=== PATIENT | female | born 1985 | race American Indian/Alaskan Native ===

== ENCOUNTER 2018-06-25 09:18 | Emergency (ER) | payer OTHER ==
[2018-06-25 09:36] VITALS: BMI 28.9
[2018-06-25] MEDS ORDERED: ACETAMINOPHEN 1000 MG/100 ML VIAL (NON FORMULARY) IVPB ONE (10:25)
[2018-06-25] MEDS ORDERED: LACTATED RINGERS SOLUTION 1000 ML INFUS.BAG IV ONE (10:25)
[2018-06-25] MEDS ORDERED: ACETAMINOPHEN INJECTION 100 ML IVPB ONE (10:50)
--- NOTE | 2018-06-25 10:59 | PDOC ---
History of Present Illness - General Chief Complaint: Nausea/Vomiting Stated Complaint: 5 WKS W/ FEVER AND VOMITING Time Seen by Provider: 06/25/18 09:50 History Source: Patient, Spouse ( present at bedside.) Exam Limitations: No Limitations - History of Present Illness Initial Comments: HPI: 32 y/o female presenting to [facility] ER complaining of nausea, vomiting, coughing, sore throat, sinus congestion, lightheadedness, palpitations, and shortness of breath since yesterday. Pt is 20w3d by LMP. Emesis described as non- bloody, non-bilious. Believes her sore throat is triggering the vomiting. Palpitations started last evening and are present both at rest and with exertion. Does not believe the shortness of breath is related. Coughing in productive of small amount of clear sputum. 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 Endorses h/o of similar complaints with previous . Was diagnosed with influenza at that time and rehydrated in the ER. Her first child was born with a cleft lip and expressed concern it was related to taking Zofran and Reglan. OBGYN Hx: - LMP: 02/02/2018 - A0, full term, breach via - No h/o of abnormal PAP smear - No h/o STD PCP: Madie DuboseN: Dr. 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 Medical Hx: - No PMH endorsed. - States she takes Iron supplements and vitamins Surgical Hx: - Review of Systems: In addition to that documented in the HPI above, the additional ROS was obtained : Constitutional: Denies fevers or chills Head: Denies vision changes ENMT: Endorses sore throat CV: Per HPI Resp: Per HPI GI: Endorses vomiting. Denies diarrhea : Denies painful urination, hematuria, vaginal bleeding MSK: Denies recent trauma Skin: Denies new rashes Neuro: Endorses generalized weakness. Denies new numbness or tingling Endocrine: Denies polyuria Heme: Denies bleeding or bruising Physical Examination: Constitutional: Well-developed, well-nourished adult female in no acute distress or obvious discomfort. Found sitting upright on edge of OB table. Alert and oriented x4. Answered all questions appropriately and completely. Speech was non-labored, non-pressured. Head: Normocephalic. No obvious external signs of trauma. Eyes: Sclerae white. Conjunctiva moist and not injected. Ears: Hearing grossly intact. Nose: Nasal congestion. Throat: Oral cavity and pharynx normal. No inflammation, swelling, exudate, or lesions. Teeth and gingiva in good general condition. Moist mucosal membranes. Neck: Supple, trachea is midline. Cardiovascular / Chest: Tachycardic rate with regular rhythm. No murmur, rubs, clicks, or gallops. Peripheral pulses: radial pulses full. Respiratory: Breathing unlabored. No tachypnea. No retractions. Equal chest rise and fall. Clear to auscultation bilaterally. No stridor, no wheezing, no rhonchi. Gastrointestinal: abdomen is soft and non-tender. Gravid. No pulsatile masses. Neuro: Alert and oriented. Moving all four extremities spontaneously. Skin: Warm, dry, and intact. No bruising, rashes, or other lesions. : No R or L CVA tenderness. Psych: Affect: appropriate. Mood: normal. Past History - Past Medical History Allergies/Adverse Reactions: Allergies Allergy/AdvReac Type Severity Reaction Status Date / Time No Known Allergies Allergy Verified 06/25/18 09:58 Home Medications: Ambulatory Orders Pnv No.121/Iron/Folic Acid [ Multivitamin Tablet] 1 each PO DAILY COPD: No - Reproductive History Is Patient Now?: Yes (#): 2 Para: 1 Cervical CA: No Dysfunctional Uterine Bleeding: No Ectopic : No Endometrial CA: No Polycystic Ovaries: No Therapeutic (s) & number: No Tubal Ligation: No Spontaneous : 0 - Suicide/Smoking/Psychosocial Hx Smoking History: Never smoked Information on smoking cessation initiated: No Hx Alcohol Use: No Drug/Substance Use Hx: No *Physical Exam - Vital Signs Last Vital Signs Temp Pulse Resp BP Pulse Ox 98.2 F 131 H 18 113/80 98 06/25/18 09:33 06/25/18 09:33 06/25/18 09:33 06/25/18 09:33 06/25/18 09:33 ED Treatment Course - LABORATORY CBC & Chemistry Diagram: 06/25/18 11:10 06/25/18 11:10 *DC/Admit/Observation/Transfer Diagnosis at time of Disposition: Nausea and vomiting during prior to 22 weeks gestation, RSV infection - Discharge Dispostion Disposition: HOME Condition at time of disposition: Good Decision to Admit order: No - Referrals Referrals: Juan Landeros MD [Primary Care Provider] - Leonor Shetty [Other] - Patient Instructions Printed Discharge Instructions: DI for Viral Syndrome, DI for Hyperemesis Gravidarum, DI for -- Discomforts and Remedies Additional Instructions: You were seen today for nausea, vomiting, coughing, sore throat, sinus congestion, lightheadedness, palpitations, and shortness of breath since yesterday. Your labs showed a small elevation in your white blood cell count, which is sometimes a sign of an infection. Your RSV test was positive, which is likely the source of your malaise. Be sure to stay well hydrated and drink plenty of fluids over the next several days. You should also rest. I have included a work note in this packet. You can take over the counter Tylenol or Advil as needed for pain. Take as directed on the package insert. Do not exceed the recommended dosage. Follow up with your OBGYN at your next previously scheduled appointment. A copy of todays results are attached to this packet. Take it to the appointment so your doctor can review them. Go to the nearest emergency department if your condition worsens or you feel like you need additional emergency evaluation. Print Language: FINNISH - Post Discharge Activity Forms/Work/School Notes: Back to Work
[2018-06-25 11:23] LABS: BASO % 0.2 % (0-2.0); EOS % 1.5 % (0-4.5); HEMATOCRIT 36.2 % (32.4-45.2); HEMOGLOBIN 11.7 GM/dL (10.7-15.3); MCH 25.6 pg (25.7-33.7); MCHC 32.2 g/dl (32.0-36.0); MEAN CELL VOLUME 79.4 fl (80-96); MEAN PLT VOLUME 7.4 fl (7.5-11.1); MONO % 3.8 % (3.8-10.2); NEUT % 84.5 % (42.8-82.8); PLATELET COUNT 409 K/MM3 (134-434); RBC 4.56 M/mm3 (3.60-5.2); RDW 13.5 % (11.6-15.6); WHITE BLOOD COUNT 15.6 K/mm3 (4.0-10.0)
[2018-06-25 11:38] LABS: EPI CELLS 8.8 /HPF (0-5/HPF); HYALINE CASTS 11 /lpf (0-8); PH,URINE 7.5 (5.0-8.0); URINE APPEARANCE CLEAR; URINE BACTERIA 135.1 /hpf (NEGATIVE); URINE BILIRUBIN NEGATIVE (NEGATIVE); URINE COLOR YELLOW; URINE GLUCOSE (UA) NEGATIVE (NEGATIVE); URINE KETONE NEGATIVE (NEGATIVE); URINE LEUK ESTERASE TRACE (NEGATIVE); URINE NITRITE NEGATIVE (NEGATIVE); URINE PROTEIN NEGATIVE (NEGATIVE); URINE RBC 7 /hpf (0-4); URINE WBC 3 /hpf (0-5)
[2018-06-25 11:51] LABS: ALBUMIN 3.3 g/dl (3.4-5.0); BILIRUBIN,TOTAL 0.3 mg/dL (0.2-1); CREATININE 0.4 mg/dL (0.55-1.3); POTASSIUM 3.9 mmol/L (3.5-5.1); TOT PROT 7.5 g/dl (6.4-8.2)
--- NOTE | 2018-06-25 12:39 | PDOC ---
Attending Attestation - Resident Resident Name: Tigre Hoffmann - ED Attending Attestation I have performed the following: I have examined & evaluated the patient, The case was reviewed & discussed with the resident, I agree w/resident's findings & plan - HPI HPI: 06/25/18 12:32 32-year-old healthy female at 20 weeks gestation by dates presents with 1 day of generalized symptoms of malaise, cough, chills, nausea/vomiting, subjective wheezing and shortness of breath. - Physicial Exam PE: 06/25/18 12:34 tachy but afebrile with normal O2 sat alert, nad speaking full sentences mmm regular slight tachy, no wheeze/crackles soft/nt no edema/calf ttp neuro intact - Medical Decision Making 06/25/18 12:39 32y/o healthy F 2nd trimester otherwise uncomplicated with one day cough/sob, n/v, myalgia/chills most c/w viral process, has h/o influenza. no other red flags on history/exam other than tachycardia. not clinically consistent with PE, likely tachy from respiratory viral illness. leukocytosis 15.6 with normal diff, chem wnl including trop ua clear influenza negative, RSV POSITIVE seen/evaluated by L+D and cleared Heart Score/ECG Review #1 ECG reviewed & interpreted by me at: 10:59 General ECG Interpretation: Sinus Rhythm (tachy at 127), Normal Intervals (qtc 465), No acute ischemic changes
--- NOTE | 2018-06-25 13:30 | EKG ---
Test Reason : Blood Pressure : / mmHG Vent. Rate : 127 BPM Atrial Rate : 127 BPM P-R Int : 142 ms QRS Dur : 074 ms QT Int : 320 ms P-R-T Axes : 066 031 024 degrees QTc Int : 465 ms SINUS TACHYCARDIA OTHERWISE NORMAL ECG NO PREVIOUS ECGS AVAILABLE Confirmed by MD BETO, LAURA ([id number]) on 06/25/2018 1:30:26 PM Referred By: Confirmed By:LAURA PÉREZ MD
[2018-06-25 14:25] VITALS: BP 114/72; PULSE 110; TEMP 97.6
[2018-06-25] MEDS ORDERED: LACTATED RINGERS SOLUTION 1,000 ML/1,000 ML INFUS.BAG IV SCH (14:30)
== END 2018-06-25 14:53 | disposition home or self-care (01) ==
LOC: JER 09:18
PROC: 3E033NZ Introduction of Analgesics, Hypnotics, Sedatives into Peripheral Vein, Percutaneous Approach (ICD-10-PCS; principal; 2018-06-25)
DX: O21.9 Vomiting of pregnancy, unspecified (principal); O21.0 Mild hyperemesis gravidarum; O99.512 Diseases of the respiratory system complicating pregnancy, second trimester; B97.4 Respiratory syncytial virus as the cause of diseases classified elsewhere; Z3A.19 19 weeks gestation of pregnancy
CPT/HCPCS: 36415; 80053; 81003; 84484; 84703; 85025; 87086; 87804; 87807; 93005; 93010; 99283-25; J0131

== ENCOUNTER 2018-08-24 13:21 | Emergency (ER) | payer OTHER ==
[2018-08-24 13:38] VITALS: BMI 30.1
[2018-08-24] MEDS ORDERED: ACETAMINOPHEN 1000 MG/100 ML VIAL (NON FORMULARY) IVPB ONE (14:25)
[2018-08-24] MEDS ORDERED: SODIUM CHLORIDE 1,000 ML IV STA (14:25)
[2018-08-24] MEDS ORDERED: FAMOTIDINE 20 MG/50 ML IVPB 20 MG/50 ML MG IVPB ONE ×2 (14:25→14:42)
--- NOTE | 2018-08-24 14:34 | PDOC ---
History of Present Illness - General Chief Complaint: Pain Stated Complaint: GAS PAIN - History of Present Illness Initial Comments: 08/24/18 14:26 32 yo at 28 wga, LMP 01/2018, with no significant pmh who p/w epigastirc abdominal pain. Patient reports sharp, unremitting epigastria and RUQ, radiating to right sided back. Decreased appetite and PO intake. No identifiable triggers or alleviators. Denies PO symptom control. Endorses multiple +6 episodes of NBNB emesis this AM. Patient attributes symptoms to PO food "greasy food," intake yesterday (08-23-18) evening. Nml BM with absent BPR. Follows with Audit Tech with routine care. Patient denies SHAIKH, vision change, palpitations, cough, wheezing, orthopena, PND , leg swelling/pain, F,C, CP, SOB, urinary complaints, hematuria, BPR, diarrhea , constipation, lightheadedness, weakness, sensory changes. PMHx: as noted above Surgical: ROS: as noted SHx: Denies Etoh, IVDA, tobacco use Allergies: NKDA Past History - Past Medical History Allergies/Adverse Reactions: Allergies Allergy/AdvReac Type Severity Reaction Status Date / Time No Known Allergies Allergy Verified 08/24/18 13:38 Home Medications: Ambulatory Orders Pnv No.121/Iron/Folic Acid [ Multivitamin Tablet] 1 each PO DAILY COPD: No - Reproductive History (#): 2 Para: 1 Cervical CA: No Dysfunctional Uterine Bleeding: No Ectopic : No Endometrial CA: No Polycystic Ovaries: No Therapeutic (s) & number: No Tubal Ligation: No Spontaneous : 0 - Suicide/Smoking/Psychosocial Hx Smoking History: Never smoked Hx Alcohol Use: No Drug/Substance Use Hx: No Review of Systems - Review of Systems Comments:: 08/24/18 14:39 GENERAL/CONSTITUTIONAL: No fever or chills. No weakness. HEAD, EYES, EARS, NOSE AND THROAT: No change in vision. No ear pain or discharge. No sore throat. CARDIOVASCULAR: No chest pain or shortness of breath RESPIRATORY: No cough, wheezing, or hemoptysis. GASTROINTESTINAL: +nausea, vomiting. No diarrhea or constipation. GENITOURINARY: No dysuria, frequency, or change in urination. MUSCULOSKELETAL: No joint or muscle swelling or pain. No neck or back pain. SKIN: No rash NEUROLOGIC: No headache, vertigo, loss of consciousness, or change in strength/ sensation. ENDOCRINE: No increased thirst. No abnormal weight change HEMATOLOGIC/LYMPHATIC: No anemia, easy bleeding, or history of blood clots. ALLERGIC/IMMUNOLOGIC: No hives or skin allergy. *Physical Exam - Vital Signs Last Vital Signs Temp Pulse Resp BP Pulse Ox 98.3 F 113 H 18 130/83 99 08/24/18 13:35 08/24/18 13:35 08/24/18 13:35 08/24/18 13:35 08/24/18 13:35 - Physical Exam Comments: 08/24/18 14:40 GENERAL: Awake, alert, and fully oriented, in no acute distress HEAD: No signs of trauma, normocephalic, atraumatic EYES: PERRLA, EOMI, sclera anicteric, conjunctiva clear ENT: Hearing grossly normal, nares patent, oropharynx clear without exudates. Moist mucosa NECK: Normal ROM, supple, no lymphadenopathy, JVD, or masses LUNGS: No distress, speaks full sentences, clear to auscultation bilaterally HEART: Regular rate and rhythm, normal S1 and S2, no murmurs, rubs or gallops, peripheral pulses normal and equal bilaterally. ABDOMEN: Mild epigastria ttp. Soft, nontender, normoactive bowel sounds. No guarding, no rebound. No masses. Neg CVA ttp. EXTREMITIES : Normal inspection, Normal range of motion, no edema. No clubbing or cyanosis. NEUROLOGICAL: Cranial nerves II through XII grossly intact. Normal speech, normal gait, no focal sensorimotor deficits SKIN: Warm, Dry, normal turgor, no rashes or lesions noted ED Treatment Course - LABORATORY CBC & Chemistry Diagram: 08/24/18 14:34 08/24/18 14:34 - ADDITIONAL ORDERS Additional order review: 08/24/18 17:55 Patient Information: : 1985 Order Type: Preliminary Name: KAREN STARKS Sex: F Study Description: US OBSTETRIC LIMITED Modality: US Location: [facility] Referring Physician: CHAPIN EVANS Comments: Tigre Harris MD wrote on Aug 24, 2018 at 05:07 PM: Referring Physician: CHAPIN EVANS Patient Name: TEREZA JONES THIS IS A PRELIMINARY REPORT FROM [facility] ENGINEERING MANAGER DATE OF SERVICE: 2018-08-24 15:16:21 IMAGES: 19 EXAM: LIMITED US HISTORY: Assess for viable intrauterine COMPARISON: None. FINDINGS: Single live uterine gestation in vertex presentation heart rate 144 bpm Approximate age of 29 weeks, 0 days by composite ultrasound measurements with concordant biometrics Estimated weight 1405 g Amniotic fluid index 17.1 cm, within normal limits for measured gestational age CONFIDENTIALITY NOTICE: This information is intended only for the use of the recipient(s) named above. If you are not the intended recipient, or a person responsible for delivering it to the intended recipient, you are hereby notified that any disclosure, copying, distribution or use of any of the information contained in or attached to this transmission is STRICTLY PROHIBITED. If you have received this transmission in error, please immediately notify Imaging Client Retention Specialist and destroy the original transmission and its attachments without saving them in any manner [address] [place] [address] [place] [address] Phone: [phone] ([phone]) Fax: Email: [email or web address] Patient Information: : 1985 Order Type: Preliminary Name: KAREN STARKS Sex: F Study Description: US OBSTETRIC LIMITED Modality: US Location: [facility] Referring Physician: CHAPIN EVANS Anterior placenta without abruption or previa The cervix is closed and measures 4.2 cm in length THIS DOCUMENT HAS BEEN ELECTRONICALLY SIGNED Tigre Harris MD 08/24/2018 17:06 SHIRLEY Vinson Please call Imaging Client Retention Specialist [phone] ([phone]) with questions. Tigre Harris MD Clinicians - Please contact Imaging Client Retention Specialist with further questions Patient Information: : 1985 Order Type: Preliminary Name: KAREN STARKS Sex: F Study Description: US ABDOMEN LIMITED Modality: US Location: [facility] Referring Physician: CHAPIN EVANS Comments: Tigre Harris MD wrote on Aug 24, 2018 at 05:10 PM: Referring Physician: CHAPIN EVANS Patient Name: TEREZA JONES THIS IS A PRELIMINARY REPORT FROM [facility] ENGINEERING MANAGER DATE OF SERVICE: 2018-08-24 15:25:05 IMAGES: 39 EXAM: ABDOMEN US -LIMITED HISTORY: Right upper quadrant pain COMPARISON: None. FINDINGS: The gallbladder is filled with sludge with a mobile shadowing stones. The gallbladder wall is normal in thickness measuring 2 mm. No pericholecystic fluid. Presence or absence of a sonographic Godfrey's sign was not reported The common bile duct is within normal limits measuring 5.3 mm The liver is enlarged measuring 20 cm in sagittal length. Contour and echogenicity are normal. No CONFIDENTIALITY NOTICE: This information is intended only for the use of the recipient(s) named above. If you are not the intended recipient, or a person responsible for delivering it to the intended recipient, you are hereby notified that any disclosure, copying, distribution or use of any of the information contained in or attached to this transmission is STRICTLY PROHIBITED. If you have received this transmission in error, please immediately notify Imaging Client Retention Specialist and destroy the original transmission and its attachments without saving them in any manner [address] [facility] [employer] [facility] [address] [place] [address] Phone: [phone] ([phone]) Fax: Email: [email or web address] Patient Information: : 1985 Order Type: Preliminary Name: KAREN STARKS Sex: F Study Description: US ABDOMEN LIMITED Modality: US Location: [facility] Referring Physician: CHAPIN EVANS intrahepatic biliary dilatation. No hepatic masses. The portal vein is patent with hepatopedal flow Pancreas, right kidney and visualized abdominal aorta are unremarkable Medical Decision Making - Medical Decision Making 08/24/18 14:38 32 yo at 28 wga, LMP 01/2018, with no significant pmh who p/w epigastirc abdominal pain. HR 113, vitals otherwise wnl, AF, A&Ox3. Physical exam unremarkable. Possible gastritis, esophagitis, biliary dz. Ddx: enteritis, colitis, PUD, pancreatitis. Provide anti-emetic, analgesic control, IVF. Will assess for viable IUP. Reassess. Ed Course: 08/24/18 17:52 Laboratory Tests 08/24/18 08/24/18 08/24/18 14:34 14:34 16:27 WBC 14.9 H Hgb 10.7 Hct 33.0 Plt Count 354 Sodium 137 Chloride 105 BUN 4.9 L Creatinine 0.3 L Beta HCG, Quant 89965.7 Urine Color Yellow Urine Appearance Clear Urine Ketones Trace H Urine Blood Negative Urine Nitrite Negative Ur Leukocyte Esterase Negative 08/24/18 17:55 Transabdominal U/S: Single live uterine gestation in vertex presentation heart rate 144 bpm Approximate age of 29 weeks, 0 days by composite ultrasound measurements with concordant biometrics Estimated weight 1405 g Amniotic fluid index 17.1 cm, within normal limits for measured gestational age RUQ U/S: Unremarkable Pt. pain improved Stable for d/c to L&D for monitoring L&D notified. Pt. Audit Tech physician contacted [phone], Awaiting call back 08/24/18 18:19 *DC/Admit/Observation/Transfer Diagnosis at time of Disposition: Abdominal pain affecting - Discharge Dispostion Disposition: HOME Condition at time of disposition: Stable Decision to Admit order: No - Referrals Referrals: Billie Bradford MD [Staff Physician] - - Patient Instructions Printed Discharge Instructions: DI for Abdominal Pain -- Early Additional Instructions: Please return to the emergency department with any new or worsening symptoms or concerns. Please follow up with your primary care physician within 72 hours. - Post Discharge Activity Forms/Work/School Notes: Back to Work, Parent(s) Back to Work Note
[2018-08-24] MEDS ORDERED: ACETAMINOPHEN INJECTION 100 ML IVPB ONE (14:42)
[2018-08-24 14:46] LABS: BASO % 0.6 % (0-2.0); EOS % 0.9 % (0-4.5); HEMOGLOBIN 10.7 GM/dL (10.7-15.3); LYMPH % 10.8 % (8-40); MCH 24.9 pg (25.7-33.7); MCHC 32.5 g/dl (32.0-36.0); MEAN CELL VOLUME 76.7 fl (80-96); MEAN PLT VOLUME 7.3 fl (7.5-11.1); MONO % 5.4 % (3.8-10.2); NEUT % 82.3 % (42.8-82.8); PLATELET COUNT 354 K/MM3 (134-434); RBC 4.31 M/mm3 (3.60-5.2); RDW 14.7 % (11.6-15.6); WHITE BLOOD COUNT 14.9 K/mm3 (4.0-10.0)
[2018-08-24 15:20] LABS: ALBUMIN 2.9 g/dl (3.4-5.0); BILIRUBIN,TOTAL 0.6 mg/dL (0.2-1); BLOOD UREA NITROGEN 4.9 mg/dL (7-18); CALCIUM 8.3 mg/dL (8.5-10.1); CREATININE 0.3 mg/dL (0.55-1.3); POTASSIUM 4.5 mmol/L (3.5-5.1); TOT PROT 7.2 g/dl (6.4-8.2)
--- NOTE | 2018-08-24 15:29 | PDOC ---
Documentation entered by Rogelio Cardona SCRIBE, acting as scribe for Maryana Gonzalez MD. Maryana Gonzalez MD: This documentation has been prepared by the hlolye, Rogelio Cardona SCRIBE, under my direction and personally reviewed by me in its entirety. I confirm that the documentation accurately reflects all work, treatment, procedures, and medical decision making performed by me. Attending Attestation - Resident Resident Name: Mack Zamarripa - ED Attending Attestation I have performed the following: I have examined & evaluated the patient, The case was reviewed & discussed with the resident, I agree w/resident's findings & plan, Exceptions are as noted - HPI HPI: 08/24/18 15:50 The patient is a 32 year old female(), 28 weeks , with a significant past medical history of GERD who presents to the emergency department with epigastric pain since earlier today. The patient states that she woke up this morning with her epigastric pain and it radiates to her right sided back. She describes it as sharp, unremitting and present at rest. The patient states that she ate some greasy food last night and experienced about 6 episodes of vomiting this morning prior to coming to the ED. The patient endorses similar pain like this in the past. She denies any significant issues with her . She states that she follows up with routine care with her OBgyn. She denies any fever, chills, nausea, diarrhea, constipation or urinary symptoms. She denies any chest pain, shortness of breath, headache, dizziness, vaginal bleeding or discharge. The patient denies any other symptoms or complaints on exam. - Physicial Exam PE: 08/24/18 15:27 awake alert lung clear bilat heart rrr no mrg abd soft gravid. nontender. ext wwp. no edema. no calf tenderness. - Medical Decision Making 08/24/18 15:27 32 yo 28 wks here with epigastric pain radiating to back. no cp no sob. differential gastritis, pancreatitis, us ruq r/o cholethiasis, iv hydration. will d/w pt ob darell simon. reassess. 08/24/18 17:20 ruq us with sludge, ob us normal FHR 148 bpm. no cholecystitis labs normal. will send to labor and delivery for monitoring. attempt to call DR simon, awaiting call back.
[2018-08-24] MEDS: METOCLOPRAMIDE HCL INJECTION 10 MG/2 ML VIAL IVPUSH ONE ×2 (16:22→16:30)
[2018-08-24] MEDS ORDERED: METOCLOPRAMIDE HCL INJECTION 10 MG/2 ML VIAL ONE (16:24)
[2018-08-24] MEDS ORDERED: FOLIC ACID INJECTION - 1 MG, THIAMINE HCL 100 MG, MULTIVIT INJECTION ADULT 10 ML in SOD... IVPB ONE (16:41)
[2018-08-24 16:48] LABS: URINE APPEARANCE CLEAR; URINE BILIRUBIN NEGATIVE (NEGATIVE); URINE COLOR YELLOW; URINE GLUCOSE (UA) NEGATIVE (NEGATIVE); URINE KETONE TRACE (NEGATIVE); URINE LEUK ESTERASE NEGATIVE (NEGATIVE); URINE NITRITE NEGATIVE (NEGATIVE); URINE PROTEIN NEGATIVE (NEGATIVE); URINE UROBILINOGEN 0.2 mg/dL (0.2-1.0)
[2018-08-24] MEDS ORDERED: DEXTROSE 5%-0.45% SALINE 1,000 ML IV SCH (18:00)
[2018-08-24 18:51] VITALS: BP 116/70; PULSE 97; TEMP 98.1
--- NOTE | 2018-08-25 17:45 | EKG ---
Test Reason : Blood Pressure : / mmHG Vent. Rate : 100 BPM Atrial Rate : 100 BPM P-R Int : 160 ms QRS Dur : 080 ms QT Int : 360 ms P-R-T Axes : 040 029 016 degrees QTc Int : 464 ms NORMAL SINUS RHYTHM NORMAL ECG WHEN COMPARED WITH ECG OF 25-JUN-2018 10:59, NO SIGNIFICANT CHANGE WAS FOUND Confirmed by YOSSI TRAN MD ([id number]) on 08/25/2018 5:44:54 PM Referred By: Confirmed By:YOSSI TRAN MD
== END 2018-08-24 18:57 | disposition home or self-care (01) ==
LOC: JER 13:21
PROC: 3E033NZ Introduction of Analgesics, Hypnotics, Sedatives into Peripheral Vein, Percutaneous Approach (ICD-10-PCS; principal; 2018-08-24)
PROC: 3E033GC Introduction of Other Therapeutic Substance into Peripheral Vein, Percutaneous Approach (ICD-10-PCS; 2018-08-24)
PROC: 3E0337Z Introduction of Electrolytic and Water Balance Substance into Peripheral Vein, Percutaneous Approach (ICD-10-PCS; 2018-08-24)
DX: O26.893 Other specified pregnancy related conditions, third trimester (principal); Z3A.29 29 weeks gestation of pregnancy; R10.9 Unspecified abdominal pain
CPT/HCPCS: 36415; 76705-TC; 76815-TC; 80053; 81003; 83690; 84702; 85025; 87086; 93005; 93010; 99283-25; J0131; J7030

== ENCOUNTER 2018-09-06 20:13 | Inpatient (IN) | payer OTHER ==
--- NOTE | 2018-09-06 20:28 | PDOC ---
Rapid Medical Evaluation Chief Complaint: Chest Pain Medical Evaluation: Allergies Allergy/AdvReac Type Severity Reaction Status Date / Time No Known Allergies Allergy Verified 08/24/18 13:38 I have performed a brief in-person evaluation of this patient. The patient presents with a chief complaint of: Epigastric pain from yesterday; feels like gas radiating to back; NBNB emesis today; denies fever, urinary complaints, sob, cp; only abd surgery was ; was seen 2 weeks ago for similar complaint; had abd US which showed no acute findings; took Zantac today without relief Pertinent physical exam findings: +epigastric tenderness I have ordered the following: Labs, IVF, Zofran The patient will proceed to the ED for further evaluation. 09/06/18 20:27
[2018-09-06] MEDS ORDERED: MAG HYDROX/AL HYDROX/SIMETH 30 ML UNIT-DOSE CUP PO ONE (20:30)
[2018-09-06] MEDS ORDERED: SODIUM CHLORIDE 1,000 ML IV STA (20:30)
[2018-09-06] MEDS ORDERED: MAG HYDROX/AL HYDROX/SIMETH 30 ML UNIT-DOSE CUP ONE (21:37)
--- NOTE | 2018-09-06 21:53 | PDOC ---
History of Present Illness <Annette Santana - Last Filed: 09/07/18 00:39> - General History Source: Patient Exam Limitations: No Limitations - History of Present Illness Travel History: No Initial Comments: 09/06/18 21:47 HISTORY OF PRESENT ILLNESS: 32-year-old 2 para 1 is currently 30 weeks gestation who presents emergency department for evaluation of epigastric pain radiating to the right shoulder. Patient reports she is having the pain intermittently and was seen and evaluated in this emergency department 2 weeks ago for similar complaint. Patient reports the pain is relieved with belching but otherwise describes as a gassy sensation rated 7/10. Patient called her spectacle truer who recommended she take Zantac 150 mg orally if symptoms do not improve to return return to the emergency department for evaluation. Patient reports the pain improves slightly but was still present. Patient denies any vomiting but is been experiencing some mild nausea. The pain is present patient experiences some shortness of breath with deep inspiration. She denies fevers, chills, cough, obstetric complaints, dysuria or hematuria. No recent travel or sick contacts. PAST MEDICAL HISTORY: Denies past medical history SURGICAL HISTORY: Denies ALLERGIES: No known drug allergies REVIEW OF SYSTEMS General/Constitutional: Denies fever or chills. Denies weakness, weight change. HEENT: Denies change in vision. Denies ear pain or discharge. Denies sore throat. Cardiovascular: Denies chest pain. Respiratory: see HPI Gastrointestinal: see HPI Genitourinary: Denies dysuria, frequency, or change in urination. Musculoskeletal: Denies joint or muscle swelling or pain. Denies neck or back pain. Skin and breasts: Denies rash or easy bruising. Neurologic: Denies headache, vertigo, loss of consciousness, or loss of sensation. Psychiatric: Denies depression or anxiety. Endocrine: Denies increased thirst. Denies abnormal weight change. Hematologic/Lymphatic: Denies anemia, easy bleeding, or history of blood clots. Allergic/Immunologic: Denies hives or skin allergy. Denies latex allergy. PHYSICAL EXAM General Appearance: Well-appearing, appropriately dressed. No apparent distress , no intoxication. Respiratory/Chest: Lungs CTAB. No shortness of breath, chest tenderness, respiratory distress, accessory muscle use. No crackles, rales, rhonchi, stridor , wheezing, dullness Cardiovascular: Regular rhythm. Tachycardic with rate 102. S1, S2. No JVD, murmur, bradycardia, tachycardia. Vascular Pulses: Dorsalis-Pedis (R): 2+, Dorsalis-Pedis (L): 2+ Gastrointestinal/Abdominal: Normal bowel sounds. Gravid abdomen. No tenderness or rebound tenderness. No pulsatile mass, guarding, hernia, hepatomegaly, splenomegaly. Lymphatic: No adenopathy, tenderness. Musculoskeletal/Extremities: Normal inspection. FROM of all extremities, normal capillary refill. Pelvis Stable. No CVA tenderness. No tenderness to extremities, pedal edema, swelling, erythema or deformity. Integumentary: Appropriate color, dry, warm. No cyanosis, erythema, jaundice or rash Neurologic: beef pusher II-XII intact. Fully oriented, alert. Appropriate mood/affect. Motor strength 5/5. No appreciable EOM palsy, facial droop or sensory deficit. <Mulugeta Traylor - Last Filed: 09/07/18 16:55> - General Chief Complaint: Chest Pain Stated Complaint: CHEST & BACK PAIN Time Seen by Provider: 09/06/18 20:26 Past History <Annette Santana - Last Filed: 09/07/18 00:39> - Past Medical History COPD: No - Reproductive History (#): 2 Para: 1 Cervical CA: No Dysfunctional Uterine Bleeding: No Ectopic : No Endometrial CA: No Polycystic Ovaries: No Therapeutic (s) & number: No Tubal Ligation: No Spontaneous : 0 - Suicide/Smoking/Psychosocial Hx Smoking History: Never smoked Hx Alcohol Use: No Drug/Substance Use Hx: No <Mulugeta Traylor - Last Filed: 09/07/18 16:55> - Past Medical History Allergies/Adverse Reactions: Allergies Allergy/AdvReac Type Severity Reaction Status Date / Time No Known Allergies Allergy Verified 09/07/18 00:47 Home Medications: Ambulatory Orders Pnv No.121/Iron/Folic Acid [ Multivitamin Tablet] 1 each PO DAILY *Physical Exam - Vital Signs Last Vital Signs Temp Pulse Resp BP Pulse Ox 98.2 F 103 H 19 111/76 100 09/06/18 20:25 09/06/18 20:25 09/06/18 20:25 09/06/18 20:25 09/06/18 20:25 <Annette Santana - Last Filed: 09/07/18 00:39> - Vital Signs Last Vital Signs Temp Pulse Resp BP Pulse Ox 98.2 F 103 H 19 111/76 100 09/06/18 20:25 09/06/18 20:25 09/06/18 20:25 09/06/18 20:25 09/06/18 20:25 <LaytonMulugeta - Last Filed: 09/07/18 16:55> ED Treatment Course - LABORATORY CBC & Chemistry Diagram: 09/06/18 22:00 09/06/18 22:00 - ADDITIONAL ORDERS Additional order review: Laboratory Results 09/06/18 09/06/18 09/06/18 22:30 22:00 22:00 Sodium 139 Potassium 4.1 Chloride 106 Carbon Dioxide 25 Anion Gap 8 BUN 5.5 L Creatinine 0.4 L Est GFR (CKD-EPI)AfAm 158.61 Est GFR (CKD-EPI)NonAf 136.85 Random Glucose 107 H Calcium 8.8 Total Bilirubin 1.7 H AST 67 H ALT 89 H Alkaline Phosphatase 119 H Troponin I < 0.02 Total Protein 7.2 Albumin 3.0 L Lipase 142 Urine Color Dk yellow Urine Appearance Clear Urine pH 6.5 Ur Specific [place] 1.022 Urine Protein Negative Urine Glucose (UA) Negative Urine Ketones Trace H Urine Blood Negative Urine Nitrite Positive H Urine Bilirubin 3+ H Urine Urobilinogen 1.0 Ur Leukocyte Esterase 2+ H Urine WBC (Auto) 5 Urine RBC (Auto) 3 Urine Casts (Auto) 9 U Epithel Cells (Auto) 5.0 Urine Bacteria (Auto) 111.3 Urine Yeast (Auto) None seen 09/06/18 22:00 RBC 4.36 MCV 76.6 L MCHC 32.1 RDW 15.7 H MPV 7.8 Neutrophils % 76.2 Lymphocytes % 16.9 D Monocytes % 5.2 Eosinophils % 1.1 Basophils % 0.6 - Medications Given in the ED: ED Medications Discontinued Medications Generic Name Dose Route Start Last Admin Trade Name Freq PRN Reason Stop Dose Admin Acetaminophen 975 mg 09/06/18 23:45 09/07/18 00:00 Tylenol - PO 09/06/18 23:46 975 mg ONCE ONE Administration Al Hydroxide/Mg Hydroxide 30 ml 09/06/18 20:30 09/06/18 21:45 Mylanta Oral Suspension - PO 09/06/18 20:31 30 ml ONCE ONE Administration Sodium Chloride 1,000 mls @ 1,000 mls/hr 09/06/18 20:30 09/06/18 22:00 Normal Saline - IV 09/06/18 21:29 1,000 mls/hr ASDIR STA Administration <SantanaAnnette - Last Filed: 09/07/18 00:39> - LABORATORY CBC & Chemistry Diagram: 09/07/18 11:23 09/07/18 11:23 - RADIOLOGY Radiology Studies Ordered: Category Date Time Status ABDOMEN US -LIMITED [US] Stat Ultrasound 09/06/18 21:38 Ordered <Mulugeta Traylor - Last Filed: 09/07/18 16:55> Medical Decision Making - Medical Decision Making 09/06/18 21:51 A/P: 32-year-old woman at 30 weeks gestation with epigastric pain radiating to the right shoulder Most likely GERD related to or cholecystitis. Differential diagnosis includes but is not limited to ACS, GERD, pancreatitis, cholecystitis, PE, infection. Less likely infection as patient is afebrile with clear lungs. Orders per [facility] Gallbladder ultrasound Reassess 09/07/18 00:58 CBC notable for WBC-13.9. Platelets 396. Chemistries notable for T bili 1.7 venously 0.8, AST 67, ALT 89, alkaline phosphatase 119 all elevated from 2 weeks prior. Urinalysis noted to be dark yellow positive for nitrates, 3+ bilirubin, 2+ leuk esterase and 5 wbc's on high-power field. Gallbladder ultrasound notable for interval development of mild common bile duct dilatation with current diameter of 0.8 cm previously 0.5 cm additional evaluation utilizing MR IA/MRCP may be performed. Remainder of the exam appears unchanged. There is almost complete opacification of the gallbladder lumen small calculi and insipid bile/sludge. No definite sonographic evidence of acute cholecystitis. Early acute cholecystitis may not be demonstratable on sonography. Possible minimal to mild hepatomegaly. Blood cultures Ceftriaxone 1 g IV now for urine infection Given normal blood pressure and normal platelet level this is less likely hellp. Maybe early onset. Case has been discussed with Dr. Burnett of [facility] who accepted the patient for admission to . I will order physician consult for gastroenterology and general surgery to evaluate the patient in the morning for evaluation. Patient is aware of laboratory and sonogram findings as well as pending admission. 09/07/18 16:54 <Mulugeta Traylor - Last Filed: 09/07/18 16:55> *DC/Admit/Observation/Transfer - Discharge Dispostion Decision to Admit order: Yes <Annette Santana - Last Filed: 09/07/18 00:39> <Mulugeta Traylor - Last Filed: 09/07/18 16:55> Diagnosis at time of Disposition: Abdominal pain affecting , Hyperbilirubinemia, Gall stones - Discharge Dispostion Condition at time of disposition: Guarded
[2018-09-06 22:13] LABS: BASO % 0.6 % (0-2.0); EOS % 1.1 % (0-4.5); HEMATOCRIT 33.4 % (32.4-45.2); HEMOGLOBIN 10.7 GM/dL (10.7-15.3); LYMPH % 16.9 % (8-40); MCH 24.6 pg (25.7-33.7); MCHC 32.1 g/dl (32.0-36.0); MEAN CELL VOLUME 76.6 fl (80-96); MEAN PLT VOLUME 7.8 fl (7.5-11.1); MONO % 5.2 % (3.8-10.2); NEUT % 76.2 % (42.8-82.8); PLATELET COUNT 396 K/MM3 (134-434); RBC 4.36 M/mm3 (3.60-5.2); RDW 15.7 % (11.6-15.6); WHITE BLOOD COUNT 13.9 K/mm3 (4.0-10.0)
[2018-09-06 22:32] LABS: LIPASE 142 U/L (73-393)
[2018-09-06 22:43] LABS: HYALINE CASTS 9 /lpf (0-8); PH,URINE 6.5 (5.0-8.0); URINE APPEARANCE CLEAR; URINE BACTERIA 111.3 /hpf (NEGATIVE); URINE BILIRUBIN 3+ (NEGATIVE); URINE COLOR DK YELLOW; URINE GLUCOSE (UA) NEGATIVE (NEGATIVE); URINE KETONE TRACE (NEGATIVE); URINE LEUK ESTERASE 2+ (NEGATIVE); URINE NITRITE POSITIVE (NEGATIVE); URINE PROTEIN NEGATIVE (NEGATIVE); URINE RBC 3 /hpf (0-4); URINE WBC 5 /hpf (0-5)
[2018-09-06 22:57] LABS: BILIRUBIN,TOTAL 1.7 mg/dL (0.2-1); BLOOD UREA NITROGEN 5.5 mg/dL (7-18); CALCIUM 8.8 mg/dL (8.5-10.1); CREATININE 0.4 mg/dL (0.55-1.3); POTASSIUM 4.1 mmol/L (3.5-5.1); TOT PROT 7.2 g/dl (6.4-8.2)
[2018-09-06 23:35] LABS: YEAST NONE SEEN (NEGATIVE)
[2018-09-06] MEDS ORDERED: ACETAMINOPHEN 500 MG TABLET (FP) PO ONE (23:45)
[2018-09-06] MEDS ORDERED: ACETAMINOPHEN 325 MG TABLET (FP) ONE (23:49)
[2018-09-07] MEDS ORDERED: CEFTRIAXONE 1 GM in DEXTROSE 5%-WATER - 50 ML IVPB ONE (00:59)
[2018-09-07] MEDS ORDERED: SODIUM CHLORIDE 1,000 ML IV STA (01:00)
[2018-09-07] MEDS ORDERED: CEFTRIAXONE 1 GM/50 ML BAG ONE (01:25)
[2018-09-07 03:25] VITALS: BMI 28.9
[2018-09-07 03:58] LABS: BASO % 0.7 % (0-2.0); EOS % 1.7 % (0-4.5); HEMATOCRIT 31.1 % (32.4-45.2); LYMPH % 22.5 % (8-40); MCH 24.8 pg (25.7-33.7); MCHC 32.3 g/dl (32.0-36.0); MEAN CELL VOLUME 76.8 fl (80-96); MEAN PLT VOLUME 7.4 fl (7.5-11.1); MONO % 5.4 % (3.8-10.2); NEUT % 69.7 % (42.8-82.8); PLATELET COUNT 357 K/MM3 (134-434); RBC 4.05 M/mm3 (3.60-5.2); RDW 15.2 % (11.6-15.6); WHITE BLOOD COUNT 10.4 K/mm3 (4.0-10.0)
[2018-09-07 04:14] LABS: INR 1.08 (0.83-1.09); PROTHROMBIN TIME (PATIENT) 12.7 SEC (9.7-13.0)
[2018-09-07 04:16] LABS: ACTIVATED PTT 33.3 SECONDS (25.2-36.5)
[2018-09-07 04:32] LABS: BLOOD UREA NITROGEN 4.8 mg/dL (7-18); CALCIUM 8.5 mg/dL (8.5-10.1); CREATININE 0.4 mg/dL (0.55-1.3); POTASSIUM 3.6 mmol/L (3.5-5.1)
[2018-09-07] MEDS ORDERED: ACETAMINOPHEN 325 MG TABLET (FP) PO PRN (04:37)
[2018-09-07] MEDS ORDERED: DEXTROSE 5%-LACTATED RINGERS 1,000 ML IV SCH (04:45)
--- NOTE | 2018-09-07 09:51 | HP ---
Past Medical History - Primary Care Physician PCP:: Abel Burnett - Admission Chief Complaint: 30 weeks, abdominal pain, chololithiasis History of Present Illness: 32 yo f 30 weeks , care at [facility] , c/o RUQ pain ,sharp with radiation to shoulder area. pain relived with belching ,no vomitting , no fever , no chest pain , no vaginal bleeding or dysuria, denies contraction. good FM History Source: Patient Limitations to Obtaining History: No Limitations - Past Medical History ...: 2 ...Para: 1 ...Term: 1 ...: 0 ...Spon : 0 ...Induced : 0 ...Multiple Gestation: 0 ...LMP: 01/25/18 ... Weeks Gestation by Dates: 30.1 ...EDC by Dates: 11/14/18 - Past Surgical History Past Surgical History: Yes: Hx Myomectomy: No Hx Transabdominal Cerclage: No - Advance Directives Advance Directives: Yes: Health Care Proxy - Smoking History Smoking history: Never smoked - Alcohol/Substance Use Hx Alcohol Use: No History of Substance Use: reports: None - Social History History of Recent Travel: No Home Medications - Allergies Allergies/Adverse Reactions: Allergies Allergy/AdvReac Type Severity Reaction Status Date / Time No Known Allergies Allergy Verified 09/07/18 00:47 - Home Medications Home Medications: Ambulatory Orders Pnv No.121/Iron/Folic Acid [ Multivitamin Tablet] 1 each PO DAILY Review of Systems - Review of Systems Constitutional: reports: No Symptoms Eyes: reports: No Symptoms HENT: reports: No Symptoms Neck: reports: No Symptoms Cardiovascular: reports: No Symptoms Respiratory: reports: No Symptoms Gastrointestinal: reports: Bloating, Indigestion Genitourinary: reports: No Symptoms Breasts: reports: No Symptoms Reported Musculoskeletal: reports: No Symptoms Integumentary: reports: No Symptoms Neurological: reports: No Symptoms Endocrine: reports: No Symptoms Hematology/Lymphatic: reports: No Symptoms Psychiatric: reports: No Symptoms Physical Exam - Maternity Vital Signs: Vital Signs Temperature 97.9 F 09/07/18 05:00 Pulse Rate 90 09/07/18 05:00 Respiratory Rate 18 09/07/18 05:00 Blood Pressure 115/77 09/07/18 05:00 O2 Sat by Pulse Oximetry (%) 100 09/06/18 20:25 Constitutional: Yes: Obese - Abdominal Exam/OB Fundal Height: 30 Number of Fetuses: Single Contractions: No Monitor Mode: External Heart Rate Location: [facility] Category: I Accelerations: Uniform Decelerations: None - Vaginal Exam/OB Vaginal Bleediing: No Speculum Exam: No (pelvic exam deferred, asymptomatic) - Physical Exam Musculoskeletal: Yes: WNL Extremities: Yes: WNL Edema: LLE: Trace, RLE: Trace Deep Tendon Reflex Grade: Normal +2 Psychiatric: Yes: WNL - Labs Lab Results: CBC, BMP 09/07/18 03:33 09/07/18 03:33 Problem List - Problems (1) with 30 completed weeks gestation Code(s): Z3A.30 - 30 WEEKS GESTATION OF (2) Gall stone Code(s): K80.20 - CALCULUS OF GALLBLADDER W/O CHOLECYSTITIS W/O OBSTRUCTION Qualifiers: Cholecystitis presence: with cholecystitis (3) Acquired hyperbilirubinemia Code(s): E80.6 - OTHER DISORDERS OF BILIRUBIN METABOLISM Assessment/Plan admit FHM , heart cat 1 , no contraction GI consult surgical consult NPO iv hydration repeat LFT
[2018-09-07] MEDS ORDERED: ELECTROLYTE-148 SOLN 1,000 ML IV SCH (10:00)
--- NOTE | 2018-09-07 10:36 | CON.GI ---
Consult Consult Specialty:: GI Referred by:: Dr. Chamberlain Reason for Consultation:: Abdominal pain, gallstones, abnormal liver chemistries - History of Present Illness Chief Complaint: Abdominal pain, nausea, pain in right scapula History of Present Illness: Ms. Mueller is a 32 year old femal admitted through [facility] ER for evaluation of persistent RUQ pain radiating to the right scapula, epigastric pain and nausea. She states that the pain started this past after eating and remained constant throughout the day and into sunday. Her urine was darker as well. She had a similar episode 08/24 that led to a [facility] ER visit. At that time, she was noted to have a WBC of 14.9, AST 73 and US that revealed sludge and stones in the gallbladder without a dilated biliary tract. The pain at that time lasted for a shorter period. On the current ER visit, WBC was 13.9 and elevated transaminases / ALP (ALP was normal last ER visit) were noted along with bilirubin of 1.7. Repeat abd US revealed mildly enlarged liver, stones and sludge in the gallbladder along with a dilated CBD of 8mm (prior US revealed normal CBD of 5mm). She was given 1 dose of ceftriaxone in the ED. Currently, pain persists, particularly worse with motion. 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 [employer] Place of : Other ([employer]) History of Recent Travel: No Home Medications - Allergies Allergies/Adverse Reactions: Allergies Allergy/AdvReac Type Severity Reaction Status Date / Time No Known Allergies Allergy Verified 09/07/18 00:47 - Home Medications Home Medications: Ambulatory Orders Pnv No.121/Iron/Folic Acid [ Multivitamin Tablet] 1 each PO DAILY Family Disease History - Family Disease History Family Disease History: Other: Father (Alive: healthy), Mother (Alive: healthy) , Brother (1, healthy), Sister (1, healthy), Son (1, healthy) Other Family History: No family history of liver disease, colorectal cancer or other GI malignancy Review of Systems - Review of Systems Constitutional: denies: Chills Cardiovascular: denies: Chest Pain Respiratory: denies: SOB Gastrointestinal: reports: Abdominal Pain, Indigestion, Nausea, Vomiting Musculoskeletal: reports: Back Pain (right scapula) Physical Exam-GI Vital Signs: Vital Signs Temperature 97.9 F 09/07/18 05:00 Pulse Rate 90 09/07/18 05:00 Respiratory Rate 18 09/07/18 05:00 Blood Pressure 115/77 09/07/18 05:00 O2 Sat by Pulse Oximetry (%) 100 09/06/18 20:25 Constitutional: Yes: Calm Eyes: No: Sclera Icterus Cardiovascular: Yes: Regular Rate and Rhythm. No: Murmur Respiratory: Yes: CTA Bilaterally Gastrointestinal Inspection: Yes: Scars (+ Pelvic scar), Other (Gravid uterus) ...Auscultate: Yes: Normoactive Bowel Sounds ...Palpate: Yes: Soft, Tenderness (TTP RUQ and epigastrium. + Godfrey's sign) ...Percussion: No: Tympanitic Edema: No (No LE edema) Neurological: Yes: Alert Labs: CBC, BMP 09/07/18 03:33 09/07/18 03:33 INR, PTT INR 1.08 (0.83-1.09) 09/07/18 03:33 Hepatic Panel Total Bilirubin 1.7 mg/dL (0.2-1) H 09/06/18 22:00 AST 67 U/L (15-37) H 09/06/18 22:00 ALT 89 U/L (13-61) H 09/06/18 22:00 Alkaline Phosphatase 119 U/L (45-117) H 09/06/18 22:00 Albumin 3.0 g/dl (3.4-5.0) L 09/06/18 22:00 Imaging - Results Ultrasound: Report Reviewed Problem List - Problems (1) Recurrent biliary colic Assessment/Plan: Persistence of RUQ pain raises the question of possible cholecystitis and new dilatation of the biliary tract and rise in ALP/Bili suggestive of retained / passed CBD stone. Advise: NPO Repeat LFTs ordered as well as CBC MRCP Continued IV Abx for biliary coverage (consult placed to Dr. Drake) IV Hydration Surgery consult already placed by Dr. Chamberlain Discussed case with Dr. Chamberlain. I advised that best course of action would be precautionary transfer to a high risk center as interventions could be needed (Possible ERCP / discussion re: timing of cholecystectomy). Discussed with biliary endoscopist at [facility] Dr. Mccabe who was in agreement. Code(s): K80.50 - CALCULUS OF BILE DUCT W/O CHOLANGITIS OR CHOLECYST W/O OBST
[2018-09-07 12:11] LABS: BASO % 0.8 % (0-2.0); EOS % 1.8 % (0-4.5); HEMATOCRIT 32.5 % (32.4-45.2); HEMOGLOBIN 10.6 GM/dL (10.7-15.3); LYMPH % 18.6 % (8-40); MCHC 32.5 g/dl (32.0-36.0); MEAN CELL VOLUME 76.7 fl (80-96); MEAN PLT VOLUME 7.4 fl (7.5-11.1); MONO % 6.6 % (3.8-10.2); NEUT % 72.2 % (42.8-82.8); PLATELET COUNT 376 K/MM3 (134-434); RBC 4.24 M/mm3 (3.60-5.2); RDW 15.4 % (11.6-15.6); WHITE BLOOD COUNT 9.7 K/mm3 (4.0-10.0)
[2018-09-07] MEDS: ACETAMINOPHEN 1000 MG/100 ML VIAL (NON FORMULARY) IVPB PRN ×2 (12:13→19:56)
[2018-09-07 12:33] LABS: ALBUMIN 2.8 g/dl (3.4-5.0); BILIRUBIN,TOTAL 1.9 mg/dL (0.2-1); BLOOD UREA NITROGEN 4.2 mg/dL (7-18); CALCIUM 8.5 mg/dL (8.5-10.1); CREATININE 0.3 mg/dL (0.55-1.3); POTASSIUM 4.6 mmol/L (3.5-5.1); TOT PROT 6.8 g/dl (6.4-8.2)
[2018-09-07 12:35] LABS: ALBUMIN 2.9 g/dl (3.4-5.0); BILIRUBIN,DIRECT 1.5 mg/dL (0.0-0.2); BLOOD UREA NITROGEN 3.4 mg/dL (7-18); CALCIUM 8.8 mg/dL (8.5-10.1); CREATININE 0.4 mg/dL (0.55-1.3); POTASSIUM 4.5 mmol/L (3.5-5.1); TOT PROT 6.7 g/dl (6.4-8.2)
--- NOTE | 2018-09-07 13:15 | PN ---
Progress Note (short form) - Note Progress Note: ID CONSULT DICTATED CHOLELITHIASIS/ BILIARY COLIC 30 W IUP AWAIT BC CONTINUE [id number]
[2018-09-07] MEDS ORDERED: CEFTRIAXONE 2 GM in DEXTROSE 5%-WATER 100 ML IVPB SCH (13:30)
--- NOTE | 2018-09-07 13:44 | CONS ---
INFECTIOUS DISEASE CONSULTATION DATE OF CONSULTATION: DATE OF DICTATION: 09/07/2018 HISTORY: The patient is a 32-year-old female 30 weeks who is evaluated for biliary colic. The patient was admitted on September 06, 2018 with worsening right upper quadrant and epigastric abdominal pain. She states that the pain started approximately 2 days prior to admission after eating and remained constant throughout the day. She experienced some nausea and vomiting, and urine was darker in color. She reports having a normal bowel movement. The patient had been seen in the emergency room with similar complaints on August 24, 2018. Sonogram revealed sludge and stones in the gallbladder without dilated biliary tract. Sonogram now performed shows opacification of the gallbladder with dilated of the common bile duct. She was noted to have an elevated white blood cell count and elevated liver enzymes. She denies any associated fever or chills. She was empirically treated with ceftriaxone. PAST MEDICAL HISTORY: Positive for cholelithiasis. PAST SURGICAL HISTORY: Status post section. ALLERGIES: No known allergies. MEDICATIONS: Include Tylenol, ceftriaxone, Actigall. SOCIAL HISTORY: She resides at home with her significant other. Nonsmoker. Nondrinker. No recent hospitalizations. SYSTEMS REVIEW: Neurologic: No loss of consciousness, seizure activity, or focal weakness. Cardiac: Negative chest pain or palpitations. Respiratory: Negative cough or sputum production. Gastrointestinal: As per HPI. Genitourinary: Negative for urinary tract infection. LABORATORY DATA: White count on admission 13.9, presently 9.7, hematocrit 32.5, platelets 376. BUN 3, creatinine 0.4, total bilirubin 2.0, alkaline phosphatase 112, AST 52, ALT 91, lipase 142. Urinalysis 5 white cells. HIV negative. Cultures are pending. PHYSICAL EXAMINATION: General: She is out of bed to chair in no acute distress. Not acutely toxic appearing. Vital Signs: Temperature 97.9, blood pressure 115/77, pulse 90 regular, respirations 18 per minute. HEENT: Sclerae anicteric. Heart: Sounds S1, S2. Lungs: Clear. Abdomen: Soft. Mild epigastric tenderness to palpation. A 30-week gravid uterus. Extremities: Negative for Homans sign. IMPRESSION: 1. Cholelithiasis/biliary colic. 2. Rule out common bile duct stone. 3. A 30-week intrauterine . PLAN: As well blood culture results. Continue empiric coverage. Continue empiric coverage of biliary tract pathogens with ceftriaxone pending cultures. Case discussed with GI. Agree with transfer to tertiary care center for further management. Case discussed with patient's present at the time of examination. Thank you for the kind referral. GUILLERMINA FELTON M.D. ENRIQUE/[id number]
--- NOTE | 2018-09-07 14:39 | CONSULT ---
Consult Consult Specialty:: General Surgery Reason for Consultation:: acute cholecystitis - History of Present Illness Chief Complaint: abdominal pain History of Present Illness: 32 yo female 30 weeks gravid with Recurrent bilary colic, bilary sludge presented with RUQ pain radiating to the right scapula, epigastric pain and nausea. She states that the pain started this past after eating and remained constant throughout the day and into sunday. Her urine was darker as well. She had a similar episode 08/24 that led to a [facility] ER visit. At that time , she was noted to have a WBC of 14.9, AST 73 and US that revealed sludge and stones in the gallbladder without a dilated biliary tract. The pain at that time lasted for a shorter period. On the current ER visit, WBC was 13.9 and elevated transaminases / ALP (ALP was normal last ER visit) were noted along with bilirubin of 1.7. Repeat abd US revealed mildly enlarged liver, stones and sludge in the gallbladder along with a dilated CBD of 8mm (prior US revealed normal CBD of 5mm). She was given 1 dose of ceftriaxone in the ED. Currently, pain persists, particularly worse with motion. we were asked to assess. 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 [employer] History of Recent Travel: No Home Medications - Allergies Allergies/Adverse Reactions: Allergies Allergy/AdvReac Type Severity Reaction Status Date / Time No Known Allergies Allergy Verified 09/07/18 00:47 - Home Medications Home Medications: Ambulatory Orders Pnv No.121/Iron/Folic Acid [ Multivitamin Tablet] 1 each PO DAILY Family Disease History - Family Disease History Family Disease History: Other: Father (Alive: healthy), Mother (Alive: healthy) , Brother (1, healthy), Sister (1, healthy), Son (1, healthy) Other Family History: No family history of liver disease, colorectal cancer or other GI malignancy Review of Systems - Review of Systems Constitutional: denies: Chills, Fever Eyes: denies: Blind Spots, Recent Change in Vision HENT: denies: Difficult Swallowing, Throat Pain, Toothache Neck: denies: Decreased ROM, Lumps Cardiovascular: denies: Chest Pain, Palpitations Respiratory: denies: Cough, SOB Gastrointestinal: reports: Abdominal Pain, Bloating, Other (`) Genitourinary: denies: Burning, Discharge, Dysuria Breasts: reports: No Symptoms Reported. denies: Pain Musculoskeletal: denies: Joint Swelling, Muscle Pain Integumentary: denies: Pruritis, Rash Neurological: denies: Seizure, Syncope Endocrine: denies: Unexplained Weight Gain, Unexplained Weight Loss Hematology/Lymphatic: denies: Easily Bruised, Excessive Bleeding Psychiatric: denies: Anxiety, Depression Physical Exam Vital Signs: Vital Signs Temperature 98.4 F 09/07/18 14:00 Pulse Rate 91 H 09/07/18 14:00 Respiratory Rate 18 09/07/18 14:00 Blood Pressure 126/71 09/07/18 14:00 O2 Sat by Pulse Oximetry (%) 100 09/06/18 20:25 Constitutional: Yes: Well Nourished, No Distress, Calm Eyes: Yes: Conjunctiva Clear, EOM Intact HENT: Yes: Atraumatic, Normocephalic Neck: Yes: Supple, Trachea Midline Cardiovascular: Yes: Regular Rate and Rhythm, S1, S2 Respiratory: Yes: Regular, CTA Bilaterally Gastrointestinal: Yes: Normal Bowel Sounds, Soft, Tenderness (RUQ, - murphys) ...Rectal Exam: Yes: Deferred Renal/: No: CVA Tenderness - Left, CVA Tenderness - Right Musculoskeletal: No: Muscle Pain, Muscle Weakness Extremities: No: Cool, Cyanosis Edema: No Peripheral Pulses WNL: Yes Integumentary: No: Incision, Jaundice Wound/Incision: Yes: Clean/Dry, Well Approximated Neurological: Yes: Alert, Oriented Psychiatric: Yes: Alert, Oriented Labs: CBC, BMP 09/07/18 11:23 09/07/18 11:23 Imaging - Results Cat Scan: Report Reviewed, Image Reviewed MRI: Report Reviewed, Image Reviewed (CBD stone) Problem List - Problems (1) Choledocholithiasis with obstruction Assessment/Plan: 32yo female with acute CBD obstruction, MRCP and elevated T bili Transfer to city planning engineer service No acute intervention from GS Defer to GI Thank you for the opportunity to participate in the care of this patient. Code(s): K80.51 - CALCULUS OF BILE DUCT W/O CHOLANGITIS OR CHOLECYST W OBST Qualifiers: Cholecystitis presence: with cholecystitis Cholecystitis acuity: acute Qualified Code(s): K80.43 - Calculus of bile duct with acute cholecystitis with obstruction (2) Recurrent biliary colic Code(s): K80.50 - CALCULUS OF BILE DUCT W/O CHOLANGITIS OR CHOLECYST W/O OBST (3) Abdominal pain affecting Code(s): O26.899 - OTH RELATED CONDITIONS, UNSPECIFIED TRIMESTER; R10.9 - UNSPECIFIED ABDOMINAL PAIN (4) Hyperbilirubinemia Code(s): E80.6 - OTHER DISORDERS OF BILIRUBIN METABOLISM (5) with 30 completed weeks gestation Code(s): Z3A.30 - 30 WEEKS GESTATION OF
--- NOTE | 2018-09-07 18:21 | PN ---
Progress Note (short form) - Note Progress Note: spoke to patient, result of MRI discussed , single stone in common bile duct , c /o of RUQ pain , was advised by GI and surgery to be transfer, . transfer procedure discussed agreed to be transfer , [facility] was contacted , accepted patient , Problem List - Problems (1) with 30 completed weeks gestation Code(s): Z3A.30 - 30 WEEKS GESTATION OF (2) Gall stone Code(s): K80.20 - CALCULUS OF GALLBLADDER W/O CHOLECYSTITIS W/O OBSTRUCTION Qualifiers: Cholecystitis presence: with cholecystitis (3) Acquired hyperbilirubinemia Code(s): E80.6 - OTHER DISORDERS OF BILIRUBIN METABOLISM
[2018-09-07 20:45] VITALS: BP 119/81; PULSE 92; TEMP 98.2
[2018-09-07] MEDS ORDERED: URSODIOL 300 MG CAPSULE PO SCH (22:00)
--- NOTE | 2018-09-08 09:07 | EKG ---
Test Reason : Blood Pressure : / mmHG Vent. Rate : 099 BPM Atrial Rate : 099 BPM P-R Int : 144 ms QRS Dur : 086 ms QT Int : 354 ms P-R-T Axes : 034 037 027 degrees QTc Int : 454 ms NORMAL SINUS RHYTHM NORMAL ECG WHEN COMPARED WITH ECG OF 24-AUG-2018 15:06, NO SIGNIFICANT CHANGE WAS FOUND Confirmed by MARGARITA KIMBROUGH MD ([id number]) on 09/08/2018 9:07:06 AM Referred By: Confirmed By:MARGARITA KIMBROUGH MD
--- NOTE | 2018-09-08 11:53 | DS ---
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: Vital Signs Temperature 98.2 F 09/07/18 20:20 Pulse Rate 92 H 09/07/18 20:20 Respiratory Rate 18 09/07/18 20:20 Blood Pressure 119/81 09/07/18 20:20 O2 Sat by Pulse Oximetry (%) 100 09/06/18 20:25 Constitutional: Yes: Well Nourished, No Distress, Calm Eyes: Yes: WNL, Conjunctiva Clear, EOM Intact HENT: Yes: WNL, Atraumatic, Normocephalic Neck: Yes: WNL, Supple, Trachea Midline Cardiovascular: Yes: WNL, Regular Rate and Rhythm Respiratory: Yes: WNL, Regular, CTA Bilaterally Gastrointestinal: Yes: WNL ...Rectal Exam: Yes: WNL Renal/: Yes: WNL External Genitalia: Yes: Normal Vaginal Exam: Yes: Normal Cervix: Yes: Normal Uterus: Yes: Other (30 weeks , non tender, no contraction) Breast(s): Yes: WNL Musculoskeletal: Yes: WNL Extremities: Yes: WNL Edema: LLE: Trace, RLE: Trace Integumentary: Yes: WNL Neurological: Yes: WNL, Alert, Oriented ...Motor Strength: WNL Psychiatric: Yes: WNL, Alert, Oriented Labs: CBC, BMP 09/07/18 11:23 09/07/18 11:23 Discharge Summary Reason For Visit: HYPERBILIRUBINEMIA, ABDOMINAL PAIN AFFECTING PREG common bile duct stone Hospital Course: transferred to [facility] Condition: Guarded - Instructions Referrals: Juan Landeros MD [Primary Care Provider] - Disposition: TRANSFER ACUTE CARE/OTHER HOSP - Home Medications Comprehensive Discharge Medication List: Ambulatory Orders Pnv No.121/Iron/Folic Acid [ Multivitamin Tablet] 1 each PO DAILY
== END 2018-09-07 20:30 | disposition short-term general hospital (02) | DRG 833 ==
LOC: JER 20:13 → JERBED 09-07 00:40 → J3W 09-07 02:57
PROVIDERS: ADMIT Obstetrics & Gynecology; ATTEND Obstetrics & Gynecology
DX: O26.893 Other specified pregnancy related conditions, third trimester (principal); K80.20 Calculus of gallbladder without cholecystitis without obstruction; Z3A.30 30 weeks gestation of pregnancy; E80.6 Other disorders of bilirubin metabolism
CPT/HCPCS: 36415; 74181-TC; 76705-TC; 80048; 80053; 80076; 81003; 82150; 83690; 84484; 85025; 85610; 85730; 86593; 86762; 86850; 86900; 86901; 87040; 87086; 87389; 93005; 93010; 99284-25; J0131; J7030